=== PATIENT | female | born 1990 | race Caucasian/White ===

== ENCOUNTER 2016-08-16 12:33 | Observation (INO) | payer OTHER ==
[~2016-08-16] VITALS: Ht 190.5 cm; Wt 73.5 kg
[2016-08-16 13:23] LABS: Mean Corpuscular Volume 81.4 fL (81-100)
[2016-08-16] MEDS: Benzocaine-Menthol Lozenge 2/Pkg PO PRN ×2 (21:06→23:36)
--- NOTE | 2016-08-16 23:32 | HP ---
[address] [address] HISTORY AND PHYSICAL PATIENT: CAROL BOJORQUEZ : 1990 MR#: [id number] ADMIT: 08/16/2016 JOB ID: [id number] DATE: 08/16/2016 HISTORY OF PRESENT ILLNESS: The patient is a 26-year-old, 2, para 0, at 38 weeks who has been seen in the office today with symptoms of upper respiratory tract infection and elevated blood pressure in the 150s/90s. She came for evaluation to the triage Labor and Delivery floor, was kept on the monitor. In 2 hours she had elevation of blood pressure up to 170/96, then it spontaneously decreased to normal. heart rate tracing is reactive, category 1. Baseline 145 beats per minute. The patient is having contractions every 3-4 minute but does not feel them. SOCIAL HISTORY: Unremarkable, she denies smoking, alcohol, illicit recreational drug use. FAMILY HISTORY: Significant for hypertension. care was uncomplicated, labs reviewed. She is blood group and type A-positive, rubella immune. Varicella immune. Group B strep negative. PHYSICAL EXAMINATION: VITAL SIGNS: Blood pressure 136/72, temperature 36.7, pulse 72, respiratory rate 18. HEENT: PERRLA. Chest: Clear bilaterally. No adventitious sounds. Cardiovascular: Regular rate and rhythm. ABDOMEN: Gravid, nondistended, nontender. Soft. EXTREMITIES: No pitting edema. PELVIC EXAM: The cervix is closed, posterior, effacement 50%, moderate consistency. LABS: WBC count 9.8, platelets 196, hemoglobin 8.1, hematocrit 25.3, AST 26, ALT 16, normal BUN and creatinine. Urine protein creatinine ratio is less than 0.16. Urine With urine toxicology is negative. ASSESSMENT AND PLAN: The patient is a 26-year-old, 2, para 0 at 38 weeks being admitted for observation for possible -induced hypertension. Rule out preeclampsia, possible induction of labor. Patient is mina on her own every 3-4 minutes with two contractions. The cervix is closed and unfavorable. heart rate tracing is reactive, category 1. Continuous monitoring is started. IV access was placed. The patient is being admitted for 24-hour observation. Will repeat PIH panel labs in the morning. Close monitoring of vital signs. Benzocaine with menthol lozenges were prescribed for sore throat. Claritin 10 mg p.o. b.i.d. was given for nasal congestion. Possible cervical ripening discussed with the patient. We will repeat PIH panel labs at 6 a.m. MTDD
[2016-08-17] MEDS: Benzocaine-Menthol Lozenge 2/Pkg PO PRN (03:45)
--- NOTE | 2016-08-17 07:09 | PCM.PNOBIP ---
Subjective Date of Service Aug 17, 2016 Delivery plan: Spontaneous Vaginal Delivery Subjective 26 year old at 38 weeks admitted for PIH and to rule out preeclampsia. Pt' s pressures have normalized. Pt denies NASSAR, visual disturbances, CP, SOB, abdominal pain, numbness or tingling in her extremities or any vaginal discharge. She has not had two hypertensive blood pressures that are more than 4 hours apart and her elevated blood pressures in the severe range were with coughing and thought to be cuff error. Gastrointestinal: Good Appetite, No N/V Activity: Ambulating Independently Group B Strep Results: Negative Rubella: Immune Blood Type: A (positive) RH Type: Positive Labs Laboratory Tests 08/16/16 13:13: White Blood Count 9.8, Red Blood Count 3.11, Hemoglobin 8.1, Hematocrit 25.3, Mean Corpuscular Volume 81.4, Mean Corpuscular Hemoglobin 26.0, Mean Corpuscular Hemoglobin Concent 32.0, Red Cell Distribution Width 15.5, Platelet Count 196, Hematology Comments 08/16/16 22:07: Hold Purple Top Tube Received Exam Vital Signs Vital Signs contractions are 4-5 min apart lasting 30-120 seconds BP 125/64, HR 108, RR 16, temp 37.2 Vital Signs: VS reviewed, stable Heart Tracings Heart Tones Baseline 120 bpm Heart Rate Variability: Moderate Heart Rate Accelleration: Present Heart Rate Deceleration: Absent Heart Rate Category: I Tocometry/IUPC Contraction frequency in minutes: MVUs: Sterile Vaginal Exam Cervical Dilation: 0 cm (at 21:58 on 08/16/16) Exam Abdomen: Uterus is (firm), Fundus firm Extremities: No edema Lungs: Clear to Auscultation, Normal Air Movement Heart: Exam Unremarkable, Regular Rate/Rhythm General: Alert, Oriented X3, Cooperative OB Intrapartum Assessment/Plan Assessment 26 year old at 38 weeks admitted for observation of possible PIH and to rule out preeclampsia with a possible induction of labor. Problems: (1) Active labour Plan: Repeat PIH labs pending. Continuous monitoring. Symptom management. Pt will most likely discharge tomorrow if PIH labs return normal. Status: Resolved ICD Code: [id number] Attending Statement Patient monitored overnight, all labs have returned within normal limits with exception of significant anemia with hemoglobin 8.1. All blood pressures within normal limits since 2 hours s/p delivery. Given this, without severe features and elevated severe range blood pressures related to coughing, she does not yet meet criteria for pre-eclampsia. She desires discharge home and after lab worked was within normal limits on recheck this AM, she was deemed stable for discharge. She should follow up in 2 days on L&D for blood pressure check and again next week in clinic. Pre-eclampsia precautions were reviewed. 2+DTR, no clonus on exam and BP and FHT reassuring. Will discharge home. MILAGROS LOMELI DO Aug 17, 2016 06:52 Charissa Granado MD Aug 17, 2016 12:44
[2016-08-17 09:12] LABS: BASOPHILS % (AUTO) 0.3 % (0-3); EOSINOPHILS % (AUTO) 2.2 % (0-5); MONOCYTES % (AUTO) 9.1 % (4-12); Mean Corpuscular Hemoglobin 25.8 pg (27.0-35.0); Mean Corpuscular Volume 81.8 fL (81-100); Platelet Count 212 bil/L (150-400)
--- NOTE | 2016-09-01 13:04 | PCM.DC.OB ---
Obstetrical Discharge Summary Date of Service Sep 01, 2016 Date of hospital admission Aug 16, 2016 at 15:30 Date of Discharge: Aug 17, 2016 Providers Admitting Physician: Tirso Rodríguez MD Primary Care Physician: Nopmary kay Attending Physician: Tirso Rodríguez MD Diagnosis at Time of Discharge induced hypertension Problems: (1) Hypertension Qualifiers: Hypertension type: essential hypertension Plan: 26 year old at 38 weeks admitted for PIH and to rule out preeclampsia. Pt's pressures have normalized. Pt denies NASSAR, visual disturbances , CP, SOB, abdominal pain, numbness or tingling in her extremities or any vaginal discharge. She has not had two hypertensive blood pressures that are more than 4 hours apart and her elevated blood pressures in the severe range were with coughing and thought to be cuff error. Status: Resolved ICD Code: I10 Brief History and Physical: 26 year old at 38 weeks was seen in clinic today for URI and found to have an elevated blood pressure at 150's over 90's. She presented to the L&D triage and was kept on the monitor. She had an additional reading of 170/96 though this was reported to be while the Pt was coughing. She did not have 2 episodes of of elevated blood pressure more than 4 hours apart. HR tracing was reactive, category 1. Baseline 145 BPM. Pt was having contractions every 3-4 min but did not feel them. Hospital Course: Pt was monitored, found to be hypodermically stable and discharged to home in stable condition. No Active Prescriptions or Reported Meds Patient instructions Pt verbally instructed to return to L&D triage if she experiences any NASSAR, visual changes, CP, SOB, dizziness. Bleeding or abdominal pain. Additional information Attending statement from Progress note just prior to discharge. Patient monitored overnight, all labs have returned within normal limits with exception of significant anemia with hemoglobin 8.1. All blood pressures within normal limits since 2 hours s/p delivery. Given this, without severe features and elevated severe range blood pressures related to coughing, she does not yet meet criteria for pre-eclampsia. She desires discharge home and after lab worked was within normal limits on recheck this AM, she was deemed stable for discharge. She should follow up in 2 days on L&D for blood pressure check and again next week in clinic. Pre-eclampsia precautions were reviewed. 2+DTR, no clonus on exam and BP and FHT reassuring. Will discharge home. MILAGROS LOMELI DO Sep 01, 2016 13:04
--- NOTE | 2016-09-01 13:05 | PCM.DC.OB ---
Obstetrical Discharge Summary Date of Service Aug 17, 2016 Date of hospital admission Aug 16, 2016 at 15:30 Date of Discharge: Aug 17, 2016 Providers Admitting Physician: Tirso Rodríguez MD Primary Care Physician: Nopmary kay Attending Physician: Tirso Rodríguez MD Problems: (1) Active labour Plan: Pt at 0cm throughout stay, while monitor showed some contractions Pt states that she could not feel them. Pt given instructions to come back to [facility] if she has any symptoms of labor Status: Resolved ICD Code: [id number] (2) Hypertension Qualifiers: Hypertension type: essential hypertension Hypertension goal: less than 140 /90 Qualified Code: I10 - Essential (primary) hypertension Plan: Pt has not had 2 elevated blood pressure readings greater than 4 hours apart. These elevations in her pressures were most likely due to a stress response from actively coughing with concomitant viral infection. Status: Resolved ICD Code: I10 Brief History and Physical: 26 year old at 38 weeks was seen in clinic where she was found to have a BP in the 150's/90s and also had symptoms of an upper respiratory tract infection. She was admitted to the [facility] to monitor for PIH and rule out preeclampsia. Initial lab did not show any evidence of end organ damage or proteinuria. Pt BP did elevate up to 170/96 at one point then spontaneously decreased to normal. Per nurse Pt was sitting up and actively coughing during blood pressure checks. Flu swab was negative. Hospital Course: Pt admitted overnight for Observation for PIH. Initial preeclampsia lab panel negative. Her blood pressures stabilized with no repeat elevated recordings, last recorded elevation at 15:19 on 08/16/2016 (162/82). There was no record of elevated pressure readings greater than 4 hours apart. Repeat preeclampsia lab panel showed No Active Prescriptions or Reported Meds Disposition Discharge to home in stable condition. Follow-up plan Follow up in the [facility] next week Discharge Diet: No restrictions Discharge Activity-General: Try not to overdue, Balance rest and activity, Activity as energy allows Patient instructions The elevations in your blood pressure were most likely due to a viral illness that you working through. You mentioned that your father has a blood pressure cuff at home and that you would be able to use it. Please continue to take your blood pressures throughout the coming days and record the values that you get. If you find that you are getting values of great than or equal to 140/90 please call the [facility] or the women's clinic for evaluation. If you develop any visual changes, headaches, severe fatigue, light headed or dizzy, chest pain or palpitations, shortness of breath or prolonged numbness/tingling in your extremities please return to the [facility] for additional evaluation. If you feel your membranes rupture (if your water breaks), or you start developing contractions that are 3-5 min apart and lasting for greater than 1 min, or if you have any significant vaginal bleeding of stop feeling movement of your baby please return to the [facility] for evaluation. MILAGROS LOMELI DO Aug 17, 2016 09:21
--- NOTE | 2016-09-01 13:05 | PCM.DIGYN ---
Surgical Discharge Instruction Dates of Hospitalization Date of Hospital Admission Aug 16, 2016 at 15:30 Providers Admitting Physician: Tirso Rodríguez MD Primary Care Physician: Nopmary kay Attending Physician: Tirso Rodríguez MD Diagnosis at Time of Discharge Problems: (1) Active labour Plan: FHR shows category 1 tracing. Monitor shows Pt is having some contractions however Pt is not aware of these. Pt discharged to home in stable conditions and instructed on signs of labor and when to return to the [facility] Status: Resolved ICD Code: [id number] (2) Hypertension Qualifiers: Hypertension type: essential hypertension Plan: Pt has not had 2 elevated blood pressure readings greater than 4 hours apart. These elevations in her pressures were most likely due to a stress response from actively coughing with concomitant viral infection. Status: Resolved ICD Code: I10 (3) Hypertension Qualifiers: Hypertension type: essential hypertension Hypertension goal: less than 140 /90 Qualified Code: I10 - Essential (primary) hypertension Status: Resolved ICD Code: I10 Diet Discharge Diet: No restrictions Activity Discharge Activity-General: Try not to overdue, Balance rest and activity, Activity as energy allows Additional Instructions Discharge Instructions The elevations in your blood pressure were most likely due to a viral illness that you working through. You mentioned that your father has a blood pressure cuff at home and that you would be able to use it. Please continue to take your blood pressures throughout the coming days and record the values that you get. If you find that you are getting values of great than or equal to 140/90 please call the [facility] or the women's clinic for evaluation. If you develop any visual changes, headaches, severe fatigue, light headed or dizzy, chest pain or palpitations, shortness of breath or prolonged numbness/tingling in your extremities please return to the family center for additional evaluation. If you feel your membranes rupture (if your water breaks), or you start developing contractions that are 3-5 min apart and lasting for greater than 1 min, or if you have any significant vaginal bleeding of stop feeling movement of your baby please return to the family center for evaluation. Follow Up Plan Follow Up Plan Follow up in the women's clinic next week Follow-up appointment: As previously arranged Call your provider for: Fever, Chills, Shortness of breath, Vomitting, Heavy vaginal bleeding, Increasing pain MILAGROS LOMELI DO Aug 17, 2016 09:23
== END 2016-08-17 14:00 | disposition home or self-care (01) ==
LOC: FBCO 12:33 → FBC 15:30 → INTOOBSV 15:30
PROVIDERS: ADMIT Legal Medicine; ATTEND Legal Medicine
DX: O60.03 Preterm labor without delivery, third trimester (principal); O16.3 Unspecified maternal hypertension, third trimester; Z3A.38 38 weeks gestation of pregnancy; R05 Cough
CPT/HCPCS: 36415; 59025; 80053; 82565; 82570; 84156; 84450; 84460; 84520; 84550; 85025; 85027; 87804; G0378; G0480

== ENCOUNTER 2016-09-01 18:06 | Inpatient (IN) | payer OTHER ==
[2016-09-01 19:26] LABS: Mean Corpuscular Hemoglobin 25.2 pg (27.0-35.0); Mean Corpuscular Volume 80.4 fL (81-100)
[2016-09-01] MEDS ORDERED: Methylergonovine 0.2 mg/mL Inj IM PRN (20:30)
[2016-09-01] MEDS ORDERED: Oxytocin 30 Units/500 mL LR 30 UNITS in IV Premix 1 EACH IV PRN (20:30)
[2016-09-01] MEDS ORDERED: Lactated Ringer's 1,000 ML IV PRN (20:30)
[2016-09-01] MEDS ORDERED: Sodium Chloride LOK Flush 10 mL Syringe IVFLUSH PRN (20:30)
[2016-09-01] MEDS ORDERED: Carboprost 250 mCg/mL Inj IM PRN (20:30)
[2016-09-01] MEDS ORDERED: Hemorrhage Kit, Post Partum XX ONE (20:30)
[2016-09-01] MEDS ORDERED: Ondansetron 2 mg/mL 2 mL Inj IVPUSH PRN (20:30)
[2016-09-01] MEDS ORDERED: Oxytocin 10 Unit/mL Inj IM PRN (20:30)
--- NOTE | 2016-09-01 21:04 | PCM.HPOB ---
Subjective Date of Service: Sep 01, 2016 Referring Provider: Admitting Physician: Primary Care Physician: Wendy Davis ARNP Attending Physician: Birdie Reis MD Chief Complaint Increased contractions at 40wks gestation Head ache History of Present History of Present Illness Patient is a pleasant 26-year-old woman. , at 40 weeks and 2 days gestation based on second trimester ultrasound. She was late to care. [facility] 2016 consistent contractions, 24 hours of central frontal headache, swelling in her legs and hands, and was found to have hypertensive readings in the 140s over 90s, but these decreased to 130s over 70s within an hour and have remained consistent. She has not had rupture of membranes. A+ Antibody screen negative Varicella and rubella immune RPR and HIV screen nonreactive Hepatitis B surface antigen and hepatitis C negative Chlamydia and gonorrhea negative GBS negative Gestational diabetes screen was negative Past Medical History Obstetrical History: 1 previous partial molar 04/2014 S/P D&C. Gynecologic History: Irregular menses Medical History: Anemia Surgical History: D&C 2013 Social History: Lives with family. Hx Tobacco Use: No Smoking Status: Never Smoker Hx Alcohol Use: Yes (occasional. Not during ) Hx Substance Use: No Past Family History Family History MGM- DM. "I think my father's side has cancer" Living Arrangement: with Family Review of Systems Constitutional: Y: Pain, Chills, Dizziness, Fever ENT: Denies: Hoarseness, Ulcers/Sores in Mouth Cardiovascular: Denies: Chest Pain Respiratory: Reports: Cough, Denies: Pleuritic Chest Pain, SOB with Exertion Gastrointestinal: Reports: Abdominal Pain (RLQ) Genitourinary: Denies: Dysuria Musculoskeletal: Denies: Back Pain, Neck Pain Neurological: Denies: Change in Speech, Confusion, Dizziness, Numbness, Weakness Medications Home medications vitamin Oral Fe supplement Allergy Coded Allergies: No Known Allergies (Unverified Allergy, Unknown, 05/26/15) Exam Vital Signs 127/81 mmHg 122 beats per minute 16 respiration per minute 37.1 Celsius Pain 5 out of 10 Exam Contractions every 1-3 minutes Cephalic presentation Baseline heart rate at 125 Moderate variability 15 x 15 accelerations No decelerations type I strip Objective Sitting in bed in no apparent distress. Constitutional: Well-developed, Well-nourished, Obese HEENT: Atraumatic, PERRLA, EOMI, Scleral Anicteric Lungs: Clear to Auscultation, Normal Air Movement, Other (occasional cough) Heart: Normal S1, Normal S2, No Murmurs/Rubs/Gallops, Other (tachycardic) Abdomen: Gravid Lymphatic: Normal: Axilla Palpation of Nodes, Neck Palpation of Nodes Extremities: Pulses Palpable x4, Warm, Edema (trace pitting bilateral lower extremities) Neurological/Psychiatric: Alert, Oriented X3, Cooperative, No Acute Distress, Mild Distress Neuro: Grossly Neurologically Intact Labs/Diagnostics Labs Laboratory Tests 72 Hours Test 09/01/16 19:12 09/01/16 19:24 09/01/16 19:37 White Blood Count 6.8th/mm3 (3.8-10.1) Red Blood Count 3.22mil/mm3 (3.90-5.20) Hemoglobin 8.1g/dL (12.0-15.6) Hematocrit 25.9% (35.0-46.0) Mean Corpuscular Volume 80.4fL (81-100) Mean Corpuscular Hemoglobin 25.2pg (27.0-35.0) Mean Corpuscular Hemoglobin Concent 31.3% (32.0-37.0) Red Cell Distribution Width 16.9% (12.3-15.4) Platelet Count 181bil/L (150-400) Hematology Comments Blood Urea Nitrogen 10mg/dL (6-20) Creatinine 0.58mg/dL (0.57-1.00) Uric Acid 5.0mg/dL (2.6-7.2) Aspartate Amino Transf (AST/SGOT) 31U/L (0-50) Alanine Aminotransferase (ALT/SGPT) 17U/L (0-32) Hold Urine Received (Received) Urine Random Creatinine 22mg/dL (16-392) Urine Random Total Protein 4mg/dL (0-15) Urine Protein/Creatinine Ratio 0.18 Maternal Blood Type: A Hx Rho(D) Immune Globulin: No Antibody Screen: negative Group B Strep Results: Negative Previous Infant with GBS: No Rubella: Immune Lab History: Positive for: Hx Chicken Pox, Negative for: Hx Gonorrhea, Hx HIV, Hx Herpes, Hx Syphilis OB Intrapartum Assessment/Plan Assessment 26-year-old woman her second , at term, in labor without rupture of membranes, superimposed gestational hypertension without pre-eclampsia. Problems: (1) Hypertension affecting Status: Acute ICD Code: O16.9 (2) Term Status: Acute ICD Code: Z34.80 Pain Management: Patient is currently taking Tylenol for pain. Pain Evaluation: Adequate Pain Control Intrapartum plan Patient is to be transferred to [facility]. Patient was informed that the closest receiving hospital was [facility], patient stated it was her personal request to go to [facility] as her family is closer to that area. Receiving hospital was contacted, Dr. Silvia Patel accepted transfer, and patient agreed to be transported by ambulance. Attending Statement The patient was seen and examined together with Jenny Larios DO on and I agree with the history, exam and plan as outlined in the note above. Mitchell Venegas DO Sep 01, 2016 21:04 Birdie Reis MD Sep 01, 2016 22:08
[2016-09-01] MEDS ORDERED: Magnesium Sulf 4 Gm/100 mL H2O 4 GM in IV Premix 1 EACH IV ONE (21:40)
[2016-09-01] MEDS ORDERED: Magnesium Sulfate 20 Gm/500 mL Water Premix IV ONE (21:41)
[2016-09-01] MEDS ORDERED: Calcium GLUCOnate 10% (Gm) 1 Gm/10 mL Inj ONE (21:48)
[2016-09-01] MEDS ORDERED: Magnesium Sulf 20 Gm/500mL H2O 20 GM in IV Premix 1 EACH IV SCH (22:00)
== END 2016-09-01 22:10 | disposition short-term general hospital (02) | DRG 782 ==
LOC: FBCO 18:06 → FBC 20:39
PROVIDERS: ADMIT Obstetrics & Gynecology; ATTEND Obstetrics & Gynecology
PROC: 3E033GC Introduction of Other Therapeutic Substance into Peripheral Vein, Percutaneous Approach (ICD-10-PCS; principal; 2016-09-01)
DX: O13.3 Gestational [pregnancy-induced] hypertension without significant proteinuria, third trimester (principal); O09.32 Supervision of pregnancy with insufficient antenatal care, second trimester; Z3A.40 40 weeks gestation of pregnancy

== ENCOUNTER 2016-09-08 13:38 | Emergency (ER) | payer OTHER ==
[~2016-09-08] VITALS: Ht 160 cm; Wt 72.5 kg
[2016-09-08 14:06] VITALS: BP 138/89; PULSE 120; RESP 16; O2SAT 98
--- NOTE | 2016-09-08 14:23 | ED.REPORT ---
HPI-Extremity Problem Lower Date of Service Sep 08, 2016 ED Provider: Becky Jarvis History of Present Illness: right leg swelling s/p on Sunday. no hx of chf, has had a cough related to URI, cough has decreased. delivered [facility] OB [facility], trying to nurse. Swelling in legs started on Sunday. Both legs have swelling right greater than left. denies chest pain or SOB, reports pain in lower feet r/t to edema Nursing Notes Stated Complaint: POSS BLOOD CLOT IN RT LEG Chief Complaint: Extremity Trauma Nursing Notes Reviewed: Yes Allergies: Coded Allergies: No Known Allergies (Verified Allergy, Unknown, 09/08/16) No Active Prescriptions or Reported Meds General Time Seen by MD: 14:16 Chief Complaint Other (bilateral leg swelling right greater than left) Hx Obtained From: Patient Onset Occurred: 5 days ago Symptom Duration: Since onset Past Medical History Past Medical History denies Denies: Asthma, Hypertension Past Surgical History D&C for miscarriage Reports: (09/02/2016) Smoking History Never Smoker Social History Alcohol Use: Denies alcohol use Drug Use: Denies drug use Other Social History: Occupation lives with family, work at [employer] at the [employer] in [place] 09/08/2016 Ambulatory Status Independent Review of Systems Basic Review of Systems Eyes: Vision NL, No discharge ENT: No nasal congestion, No pharyngeal pain Respiratory: No shortness of breath, No cough, No wheeze Cardiovascular: No chest pain, No dyspnea on exertion, No orthopnea, No parox noct dyspnea, No palpitations GI: No nausea, No vomiting : No frequency Hematologic: No bruising Endocrine: No weight gain, No weight loss Psychiatric: Normal thought content Physical Exam Initial Vital Signs Vital Signs (First) Date Time Temp Pulse Resp B/P Pulse Ox O2 Delivery O2 Flow Rate FiO2 09/08/16 14:06 36.7 120 16 138/89 98 Room Air Initial VS: Reviewed, Vital signs abnormal General/Constitutional: Well-developed, Well-nourished Head / Eyes: Atraumatic, Normocephalic, PERRL ENT: Mucous membranes moist, Conjunctiva normal, No scleral icterus Neck: Supple, Non-tender, Full range of motion Respiratory: Breath sounds normal, Clear to auscultation, No respiratory distress Cardiovascular: Regular rate & rhythm, Heart sounds normal, Intact distal pulses Abdomen / GI: Soft, Non-tender, No guarding, No rebound, No distention Back: No CVA tenderness Lymphatic: No lymphadenopathy Upper Extremities: Vascular intact, Neuro intact, No swelling, No tenderness Skin: Warm, Dry, No cyanosis Neurologic: Alert, Oriented, Nonfocal Psychiatric: Mood/affect normal, Behavior normal, Normal thought content both lower extremities have pitting edema, right is more involved than the left. No erthyma noted. No JVD, General/Constitutional: Awake, Alert, No acute distress, Well appearing, Well developed, Well hydrated, Well nourished, Cooperative, Not toxic appearing Respiratory / Chest: Atraumatic, Breath sounds NL, Breath sounds = bilat, No respiratory distress, No rales, No rhonchi, No wheezing, No retractions Cardiovascular: Heart rate NL, Regular rhythm, Heart sounds NL, No gallop Interpretation & Diagnostics Interpretation & Diagnostics: TECHNIQUE: Real-time imaging, as well as color and pulse Doppler interrogation, were performed of the lower extremity deep veins from the inguinal ligament to the popliteal fossa. COMPARISON: None. FINDINGS: The deep veins are normally compressible, and free of intraluminal thrombus. Color and pulse Doppler demonstrate normal phasic intraluminal flow. There is normal augmentation response to distal compression maneuver. IMPRESSION: No deep venous thrombosis identified within the right lower extremity. Lab Results Interpretation Result Diagram: 09/08/16 1540 09/08/16 1540 Test 09/08/16 15:40 White Blood Count 5.4th/mm3 (3.8-10.1) Red Blood Count 3.16mil/mm3 (3.90-5.20) Hemoglobin 8.3g/dL (12.0-15.6) Hematocrit 26.1% (35.0-46.0) Mean Corpuscular Volume 82.6fL (81-100) Mean Corpuscular Hemoglobin 26.3pg (27.0-35.0) Mean Corpuscular Hemoglobin Concent 31.8% (32.0-37.0) Red Cell Distribution Width 16.5% (12.3-15.4) Platelet Count 300bil/L (150-400) Neutrophils (%) (Auto) 74.4% (40-74) Lymphocytes (%) (Auto) 12.8% (14-46) Monocytes (%) (Auto) 9.5% (4-12) Eosinophils (%) (Auto) 1.3% (0-5) Basophils (%) (Auto) 0% (0-3) Sodium Level 140mEq/L (134-144) Potassium Level 4.0mEq/L (3.5-5.2) Chloride Level 102mEq/L (97-108) Carbon Dioxide Level 24mmol/L (18-29) Blood Urea Nitrogen 8mg/dL (6-20) Creatinine 0.39mg/dL (0.57-1.00) Estimat Glomerular Filtration Rate 282mL/min (>59) Glucose Level 87mg/dL (60-99) Calcium Level 8.2mg/dL (8.5-10.1) Total Bilirubin 0.2mg/dL (0.0-1.2) Aspartate Amino Transf (AST/SGOT) 56U/L (0-50) Alanine Aminotransferase (ALT/SGPT) 28U/L (0-32) Alkaline Phosphatase 129U/L (25-150) Pro-B-Type Natriuretic Peptide 234.2pg/mL (0-130) Total Protein 5.7g/dL (6.4-8.4) Albumin 3.0g/dL (3.4-5.0) Hold Johansen Top Tube Received (Received) X-Ray Chest Interpretation Chest Xray Interpretation: HNIQUE: 2 views of the chest were acquired. COMPARISON: None. FINDINGS: Surgical changes and devices: None. Lungs and pleura: No pleural effusions or pneumothorax. Lungs are clear. Mediastinum: Mediastinal contours are normal. Heart size is normal. Bones and chest wall: No suspicious bony abnormalities. Soft tissues appear unremarkable. IMPRESSION: There is no abnormality seen in the two-view chest. Dictated by: Sky Collins M.D. on 09/08/2016 at 17:38 Approved by: Sky Collins M.D. on 09/08/2016 at 17:38 Re-Eval/Medical Decision Med Decision/Clinical Course 26 year old female presents to the ER s/p 6 days after delivery of first baby. Sent in by OB for concern of clot in leg. Both legs have pitting edema, exam is most consistent with bilateral edema. No sign of compartment syndrome, blood clot, CHF or superficial thromoembolism. Patient placed with legs elevated and support hose applied. Patient reporting decreased in pain along with visual in edema bilateral. Patient provided 2 liters of fluid in the ER with decrease in heart rate. Patient reporting nursing with no water intake today and 2 cupos of coffee. Educated on importance of increasing fluids and whn to return to the ER Discharge & Departure Impression: Primary Impression: Lower extremity edema Laterality: bilateral Qualified Code: R60.0 - Localized edema Additional Impression: Dehydration Disposition: Home Patient Instructions: Dehydration (ED), Leg Edema (ED) Additional Instructions: The ultrasound is negative for any clot formation. You have swelling in both of your legs, the right is worse than the left. You need to get into some support hose to help decrease the swelling. Your marker for congestive heart failure is negative. Your labs are at your baseline. The chest x-ray is normal. As you are nursing you need to drink lots of water. This is a great time to nurse baby and lose weight! Put baby to breast frequently. REturn to the ER with any changes. Please follow up with OB as scheduled. Referrals: [facility] Provider for APC: Uli Owen MD Attending Statement I discussed patient with STEPHANIE Jarvis. I saw and evaluated patient independently. I agree with plan as above. In brief, 26-year-old female who is one-week status post presenting with lower extremity swelling. Sent in for ultrasound. Ultrasound shows no evidence of DVT. Likely postoperative changes. Agree with plan as above. [facility] to: [facility] STEPHANIE Sep 08, 2016 14:23 Uli Owen MD Sep 08, 2016 18:03
[2016-09-08 15:51] LABS: BASOPHILS % (AUTO) 0 % (0-3); EOSINOPHILS % (AUTO) 1.3 % (0-5); MONOCYTES % (AUTO) 9.5 % (4-12); Mean Corpuscular Hemoglobin 26.3 pg (27.0-35.0); Mean Corpuscular Volume 82.6 fL (81-100); NEUTROPHILS % (AUTO) 74.4 % (40-74); Platelet Count 300 bil/L (150-400)
--- NOTE | 2016-09-08 16:07 | DRSVH ---
PROCEDURE: US VEINOUS LEG DUPLEX UNILATERAL, RIGHT INDICATIONS: right leg pain TECHNIQUE: Real-time imaging, as well as color and pulse Doppler interrogation, were performed of the lower extr emity deep veins from the inguinal ligament to the popliteal fossa. COMPARISON: None. FINDINGS: The deep veins are normally compressible, and free of intraluminal thrombus. Color and pu lse Doppler demonstrate normal phasic intraluminal flow. There is normal augmentation response to di stal compression maneuver. IMPRESSION: No deep venous thrombosis identified within the right lower extremity. Dictated by: Jsapal Dickerson [facility] Interpreted: Thanh Patel MD on 09/08/2016 at 16:04 Transcribed by: ERLINDA on 09/08/2016 at 16:07 Approved by: Thanh Patel M.D. on 09/08/2016 at 16:21
[2016-09-08] MEDS ORDERED: 0.9% Sodium Chloride 1,000 ML IV ONE (17:25)
--- NOTE | 2016-09-08 17:40 | DRSVH ---
PROCEDURE: X-RAY CHEST, TWO VIEWS ([id number]) INDICATIONS: bilateral leg swelling TECHNIQUE: 2 views of the chest were acquired. COMPARISON: None. FINDINGS: Surgical changes and devices: None. Lungs and pleura: No pleural effusions or pneumothorax. Lungs are clear. Mediastinum: Mediastinal contours are normal. Heart size is normal. Bones and chest wall: No suspicious bony abnormalities. Soft tissues appear unremarkable. IMPRESSION: There is no abnormality seen in the two-view chest. Dictated by: Sky Collins M.D. on 09/08/2016 at 17:38 Approved by: Sky Collins M.D. on 09/08/2016 at 17:38
[2016-09-08 18:26] VITALS: BP 141/93; PULSE 111; RESP 17; O2SAT 100
[2016-09-08 19:06] VITALS: BP 134/78; PULSE 98; RESP 16; O2SAT 99
== END 2016-09-08 19:13 | disposition home or self-care (01) ==
LOC: SED 13:38
DX: R60.9 Edema, unspecified (principal); E86.0 Dehydration; Z98.890 Other specified postprocedural states
CPT/HCPCS: 36415; 71020; 80053; 83880; 85025; 93971; 99285; J7030